=== PATIENT | female | born 1990 | race Caucasian/White ===

== ENCOUNTER 2016-09-21 15:18 | Emergency (ER) | payer SELFPAY ==
[~2016-09-21] VITALS: Ht 154.9 cm; Wt 46.0 kg
[2016-09-21 15:20] VITALS: BP 145/85; PULSE 72; RESP 12; TEMP 98.1; O2SAT 99
--- NOTE | 2016-09-21 17:04 | PD ---
HPI Chief Complaint: Abdominal Pain Time Seen by Provider: 17:04 Travel History International Travel<30 days: No Contact w/Intl Traveler<30days: No Traveled to known affect area: No History of Present Illness HPI 26-year-old female presents to emergency department with multiple requests. Patient states that she has had swallowing trouble for the last 10 months and has lost 30 pounds. She has been followed by GI with multiple endoscopies complete. She states that she is in need of an esophageal manometry test but she is unable to afford the $700 but it costs to do this. She is also ordered to get an outpatient ultrasound for further evaluation of a mass in her abdomen but states that she works all the time and would like this done here today. Patient denies any nausea or vomiting. She states she does have a history of GERD with epigastric burning which seems to be worse because her insurance no longer covers that splint and she has to take a different medication which is not helping her. She denies any recent illnesses, fever, chills. Would like lab work completed to see if she is dehydrated. She is having normal bowel movements and making urine. She states all she is able to eat ensure and protein shakes for the last 10 months. Her GI doc is aware of this. She is upset because he feels that nobody is working her up fast enough to find what is wrong with her and she was hoping today in the emergency department that we could do all of her tests at once and find a solution. History Social History Alcohol Use: No Tobacco Use: No Allergies-Medications (Allergen,Severity, Reaction): Coded Allergies: Demerol (Verified Allergy, Severe, 09/21/16) Review of Systems Except as stated in HPI: all other systems reviewed are Neg Physical Exam Narrative GENERAL: Well-nourished, female patient, sitting on the bed, in no acute distress SKIN: Warm and dry. HEAD: Atraumatic. Normocephalic. EYES: Pupils equal and round. No scleral icterus. No injection or drainage. ENT: No nasal bleeding or discharge. Mucous membranes pink and moist. NECK: Trachea midline. No JVD. CARDIOVASCULAR: Regular rate and rhythm. RESPIRATORY: No accessory muscle use. Clear to auscultation. Breath sounds equal bilaterally. GASTROINTESTINAL: Abdomen soft, non-tender, nondistended. Hepatic and splenic margins not palpable. Normal active bowel sounds. No rebound tenderness. No guarding. MUSCULOSKELETAL: Extremities without clubbing, cyanosis, or edema. No obvious deformities. NEUROLOGICAL: Awake and alert. No obvious cranial nerve deficits. Motor grossly within normal limits. Five out of 5 muscle strength in the arms and legs. Normal speech. PSYCHIATRIC: Appropriate mood and affect; insight and judgment normal. Data Data Last Documented VS Vital Signs Date Time Temp Pulse Resp B/P Pulse Ox O2 Delivery O2 Flow Rate FiO2 09/21/16 15:20 98.1 72 12 145/85 99 Room Air MDM Medical Screen Exam Complete: Yes Emergency Medical Condition: No Differential Diagnosis Gastritis versus gastroenteritis versus GERD versus esophageal stricture versus abdominal mass Narrative Course 26 year-old female presents to emergency department with multiple for work today. Patient appears distress. Her vital signs are stable. Abdominal exam is essentially benign. Normoactive bowel sounds. Patient is being followed by primary care provider as well as a internet and e business project manager who are working her up outpatient in her fully aware of the 10 months of her abdominal pain, possible mass, she had ordered outpatient tests, and scheduled follow-up. The patient presents today with no emergent need for emergency workup. I have offered to do basic lab work consists of a CBC and a BMP as she is requesting if the patient opted to stay for treatment however at this time there are no urgent or emergent needs for medical intervention. I have offered reassurance and understanding and confirmed with the patient that there may be something wrong but she is following up outpatient which is appropriate for her at this time. I also explained her that if an acute change acutely that she needed to return to the emergency department. A medical screening exam was performed: At the time of evaluation the presenting medical condition was determined not to be of an emergent nature. The patient was given the option of receiving additional care, but declined. Patient was given options for additional community resources from which to obtain care. The Patient Has Been advised to seek medical attention for their presenting complaint. The patient has been advised to return to the ER at any time if an emergent condition develops. Primary Impression: Encounter for medical screening examination Condition: Gracie White Sep 21, 2016 17:04
== END 2016-09-21 17:13 | disposition left against medical advice (07) ==
LOC: NEPB 15:18
DX: R13.10 Dysphagia, unspecified (principal)
CPT/HCPCS: 99281

== ENCOUNTER 2017-07-09 23:41 | Emergency (ER) | payer SELFPAY ==
[~2017-07-09] VITALS: Ht 154.9 cm; Wt 43.5 kg
[2017-07-09 23:42] VITALS: BP 174/88; PULSE 77; RESP 16; TEMP 99; O2SAT 100
[2017-07-09] MEDS ORDERED: ZOFR4TAB3 SL ×2 (23:59)
[2017-07-09] MEDS ORDERED: DICY10 PO ×2 (23:59)
[2017-07-09] MEDS ORDERED: FLUC100T2 PO ×2 (23:59)
[2017-07-10] MEDS ORDERED: diphenhydrAMINE HCL 50 MG/ML VIAL IV PUSH ONE ×2 (00:45)
[2017-07-10] MEDS ORDERED: PROCHLORPERAZINE INJ 10 MG/2 ML VIAL IV PUSH ONE ×2 (00:45)
[2017-07-10 01:04] LABS: AUTOMATED NEUTROPHIL # 8.2 TH/MM3 (1.8-7.7); BASOPHIL % 0.2 % (0.0-2.0); EOSINOPHIL % 0.1 % (0.0-4.0); HEMATOCRIT 40.1 % (35.0-46.0); HEMOGLOBIN 13.8 GM/DL (11.6-15.3); LYMPH % 8.1 % (9.0-44.0); LYMPHOCYTE # 0.7 TH/MM3 (1.0-4.8); MEAN CELL VOLUME 88.6 FL (80.0-100.0); MEAN CORPUSCULAR HEMOGLOBIN 30.4 PG (27.0-34.0); MEAN CORPUSCULAR HGB CONC 34.3 % (32.0-36.0); MEAN PLATELET VOLUME 9.9 FL (7.0-11.0); MONO % 2.5 % (0.0-8.0); MONOCYTE # 0.2 TH/MM3 (0-0.9); NEUT % 89.1 % (16.0-70.0); PLATELET COUNT 298 TH/MM3 (150-450); RED BLOOD COUNT 4.52 MIL/MM3 (4.00-5.30); RED CELL DISTRIBUTION WIDTH 13.9 % (11.6-17.2); WHITE BLOOD COUNT 9.2 TH/MM3 (4.0-11.0)
[2017-07-10 01:10] LABS: ALBUMIN 4.4 GM/DL (3.4-5.0); ALT (GPT) 78 U/L (10-53); AST (GOT) 44 U/L (15-37); BICARBONATE 27.8 MEQ/L (21.0-32.0); BILIRUBIN, URINE NEG (NEG); BLOOD UREA NITROGEN 5 MG/DL (7-18); BLOOD, URINE NEG (NEG); CALCIUM 9.3 MG/DL (8.5-10.1); CHLORIDE 103 MEQ/L (98-107); CREATININE 1.13 MG/DL (0.50-1.00); GLOMERULAR FILTRATION RATE 57 ML/MIN (>89); GLUCOSE,RANDOM 124 MG/DL (74-106); GLUCOSE,URINE NEG (NEG); KETONE, URINE TRACE mg/dL (NEG); MUCUS URINE FEW /lpf (OCC); NITRITE,URINE NEG (NEG); PH, URINE 8.5 (5.0-8.5); SODIUM (NA) 141 MEQ/L (136-145); SQUAMOUS EPITHELIAL CELL URINE <1 /hpf (0-5); URINE COLOR YELLOW (YELLW/STRAW); URINE LEUKOCYTE ESTERASE NEG (NEG)
[2017-07-10 01:12] LABS: ALKALINE PHOSPHATASE 155 U/L (45-117); TOTAL BILIRUBIN ADULT 0.6 MG/DL (0.2-1.0); TOTAL PROTEIN 8.3 GM/DL (6.4-8.2)
[2017-07-10] MEDS ORDERED: PROM1SUP9 RECTAL ×2 (01:43)
[2017-07-10] MEDS ORDERED: ZOFR4TAB3 SL ×2 (01:43)
--- NOTE | 2017-07-10 01:43 | PD ---
HPI Chief Complaint: Abdominal Pain Time Seen by Provider: 00:34 Travel History International Travel<30 days: No Contact w/Intl Traveler<30days: No Traveled to known affect area: No History of Present Illness HPI The 26 year-old woman who was discharged today from the [facility] for nausea vomiting. States been ongoing for a week or so. She had a colonoscopy today and had completed the prep. She reports that she's only a trouble with nausea vomiting and belly problems in the past couple months. She has had GERD before that. She had her gallbladder taken out. She apparently has had strictures in her esophagus as well. She states she still having vomiting and so came to the emergency department. Some abdominal pain. Some diarrhea. No fevers. History Past Medical History Narrative Medical GERD Tetanus Vaccination: < 5 Years Influenza Vaccination: No LMP: IUD Social History Alcohol Use: Yes (socailly) Tobacco Use: No (quit 2013) Allergies-Medications (Allergen,Severity, Reaction): Coded Allergies: NSAIDS (Non-Steroidal Anti-Inflamma (Verified Allergy, Severe, 07/10/17) meperidine (Verified Allergy, Severe, 07/10/17) Reported Meds & Prescriptions Reported Meds & Active Scripts Active Reported Fluconazole 100 Mg Tab 100 Mg PO ONCE Zofran Odt (Ondansetron Odt) 4 Mg Tab 4 Mg SL Q6HR PRN Bentyl (Dicyclomine HCl) 10 Mg Cap 10 Mg PO TID PRN Review of Systems Except as stated in HPI: all other systems reviewed are Neg Physical Exam Narrative GENERAL: 26 year-old woman, curled up on the bed. No retching. SKIN: Focused skin assessment warm/dry. HEAD: Atraumatic. Normocephalic. EYES: Pupils equal and round. No scleral icterus. No injection or drainage. ENT: No nasal bleeding or discharge. Mucous membranes pink and moist. NECK: Trachea midline. No JVD. CARDIOVASCULAR: Regular rate and rhythm. No murmur appreciated. RESPIRATORY: No accessory muscle use. Clear to auscultation. Breath sounds equal bilaterally. GASTROINTESTINAL: Abdomen is flat and soft. Mild diffuse tenderness. MUSCULOSKELETAL: No obvious deformities. No clubbing. No cyanosis. No edema. NEUROLOGICAL: Awake and alert. No obvious cranial nerve deficits. Motor grossly within normal limits. Normal speech. PSYCHIATRIC: Appropriate mood and affect; insight and judgment normal. Data Data Last Documented VS Vital Signs Date Time Temp Pulse Resp B/P (MAP) Pulse Ox O2 Delivery O2 Flow Rate FiO2 07/09/17 23:42 99.0 77 16 174/88 (116) 100 Room Air Orders Orders Complete Blood Count With Diff (07/10/17 00:36) Comprehensive Metabolic Panel (07/10/17 00:36) Iv Access Insert/Monitor (07/10/17 00:36) Prochlorperazine Inj (Compazine Inj) (07/10/17 00:45) Diphenhydramine Inj (Benadryl Inj) (07/10/17 00:45) Urinalysis - C+S If Indicated (07/10/17 00:38) Drug Screen, Random Urine (07/10/17 00:38) Ondansetron Inj (Zofran Inj) (07/10/17 01:45) Labs Laboratory Tests Test 07/10/17 00:45 White Blood Count 9.2 TH/MM3 Red Blood Count 4.52 MIL/MM3 Hemoglobin 13.8 GM/DL Hematocrit 40.1 % Mean Corpuscular Volume 88.6 FL Mean Corpuscular Hemoglobin 30.4 PG Mean Corpuscular Hemoglobin Concent 34.3 % Red Cell Distribution Width 13.9 % Platelet Count 298 TH/MM3 Mean Platelet Volume 9.9 FL Neutrophils (%) (Auto) 89.1 % Lymphocytes (%) (Auto) 8.1 % Monocytes (%) (Auto) 2.5 % Eosinophils (%) (Auto) 0.1 % Basophils (%) (Auto) 0.2 % Neutrophils # (Auto) 8.2 TH/MM3 Lymphocytes # (Auto) 0.7 TH/MM3 Monocytes # (Auto) 0.2 TH/MM3 Eosinophils # (Auto) 0.0 TH/MM3 Basophils # (Auto) 0.0 TH/MM3 CBC Comment DIFF FINAL Differential Comment Urine Color YELLOW Urine Turbidity CLEAR Urine pH 8.5 Urine Specific [place] 1.015 Urine Protein TRACE mg/dL Urine Glucose (UA) NEG mg/dL Urine Ketones TRACE mg/dL Urine Occult Blood NEG Urine Nitrite NEG Urine Bilirubin NEG Urine Urobilinogen LESS THAN 2.0 MG/DL Urine Leukocyte Esterase NEG Urine RBC 1 /hpf Urine WBC LESS THAN 1 /hpf Urine Squamous Epithelial Cells <1 /hpf Urine Mucus FEW /lpf Microscopic Urinalysis Comment CULT NOT INDICATED Blood Urea Nitrogen 5 MG/DL Creatinine 1.13 MG/DL Random Glucose 124 MG/DL Total Protein 8.3 GM/DL Albumin 4.4 GM/DL Calcium Level 9.3 MG/DL Alkaline Phosphatase 155 U/L Aspartate Amino Transf (AST/SGOT) 44 U/L Alanine Aminotransferase (ALT/SGPT) 78 U/L Total Bilirubin 0.6 MG/DL Sodium Level 141 MEQ/L Potassium Level 3.4 MEQ/L Chloride Level 103 MEQ/L Carbon Dioxide Level 27.8 MEQ/L Anion Gap 10 MEQ/L Estimat Glomerular Filtration Rate 57 ML/MIN Urine Opiates Screen NEG Urine Barbiturates Screen NEG Urine Amphetamines Screen NEG Urine Benzodiazepines Screen NEG Urine Cocaine Screen NEG Urine Cannabinoids Screen NEG MDM Medical Decision Making Medical Screen Exam Complete: Yes Emergency Medical Condition: Yes Interpretation(s) LABS: CBC is unremarkable. CMP mildly elevated AST and ALT. Creatinine 1.13 UA is unremarkable. Urine drug screen negative. Differential Diagnosis Gastritis, gastroenteritis, IBS, gastroparesis, other Narrative Course Medical decision making 18 year-old woman with nausea vomiting. Recent extensive inpatient workup. Looks well now. No vomiting now. Recommend supportive treatment. Diagnosis Primary Impression: Nausea & vomiting Additional Instructions: Take Zofran [id number] as scheduled. He is promethazine suppositories in addition as needed. Med/Other Pt SpecificInfo: Prescription(s) given Scripts Promethazine Supp (Promethazine Supp) 25 Mg Supp 25 MG RECTAL Q6H Y for NAUSEA OR VOMITING, #15 SUPP 0 Refills Prov: Epi Marley MD 07/10/17 Ondansetron Odt (Zofran Odt) 4 Mg Tab 4 MG SL Q6HR Y for Nausea/Vomiting, #30 TAB 0 Refills Prov: Epi Marley MD 07/10/17 Disposition: 01 DISCHARGE HOME Condition: Stable Epi Marley MD Jul 10, 2017 01:43
[2017-07-10] MEDS ORDERED: ONDANSETRON HCL 4 MG/2 ML VIAL IV ONE ×2 (01:45)
== END 2017-07-10 01:57 | disposition home or self-care (01) ==
LOC: NEPE 23:41
DX: R11.2 Nausea with vomiting, unspecified (principal); K21.9 Gastro-esophageal reflux disease without esophagitis; Z79.899 Other long term (current) drug therapy; Z88.6 Allergy status to analgesic agent; Z88.8 Allergy status to other drugs, medicaments and biological substances
CPT/HCPCS: 80053; 80307; 81001; 85025; 96374; 96375; 99284; J0780; J1200; J2405